=== PATIENT | male | born 1965 | race Caucasian/White ===

== ENCOUNTER 2020-12-22 08:01 | Day surgery (SDC) | payer BC ==
[~2020-12-22 08:01] MED LIST: Acetaminophen 325 MG Tab PO SCH; Dexamethasone 4 MG/ML 5 ML MDV ONE; Dexmedetomidine 200 MCG/2 ML SDV ONE; EPINEPHrine 1 MG/ML SDV ONE; Lactated Ringers 1,000 ML IV SCH; Lidocaine 1%/Sod Bicarbonate in NS 8.4% 1 ML Syringe IDERM PRN; Lidocaine 2% with EPINEPHrine 1:200,000 20 ML SDV ONE; Midazolam 1 MG/ML 2 ML SDV ONE; Pregabalin 25 MG Cap PO SCH; Ropivacaine 0.5% 5 MG/ML 30 ML SDV ONE; Sodium Chloride 0.9% 10 ML Syringe FLUSH PRN; fentaNYL 100 MCG/2 ML SDV ONE; oxyCODONE ER 10 MG TAB.ER PO SCH
--- NOTE | 2020-12-22 08:17 | PCM.PREANE ---
Preanesthetic Assessment - Procedure Proposed Procedure: right total shoulder arthroplasty - Anesthesia/Transfusion/Family Hx Anesthesia History: Prior Anesthesia Without Reaction Family History of Anesthesia Reaction: No Transfusion History: No Prior Transfusion(s) - Review of Systems General: No Symptoms Pulmonary: No Symptoms Cardiovascular: No Symptoms Gastrointestinal: No Symptoms Neurological: No Symptoms Other: Reports: Depression, Anxiety - Physical Assessment NPO Status Date: 12/21/20 NPO Status Time: 22:30 Vital Signs: 127/73 61 93% 16 97.7 Height: 5 ft 11 in Weight: 100.4 kg ASA Class: 2 Mental Status: Alert & Oriented x3 Airway Class: Mallampati = 1 Dentition: Reports: Normal Dentition (retainer) Thyro-Mental Finger Breadths: 3 Mouth Opening Finger Breadths: 3 ROM/Head Extension: Full Lungs: Clear to Auscultation, Normal Respiratory Effort Cardiovascular: Regular Rate, Regular Rhythm - Lab Values: Laboratory Last Values MRSA (PCR) Negative 12/09/20 15:03 - Allergies Allergies/Adverse Reactions: Allergies Allergy/AdvReac Type Severity Reaction Status Date / Time adhesive Allergy Cannot Verified 12/21/20 12:10 Remember bee venom protein (honey bee) Allergy Cannot Verified 12/21/20 12:10 Remember pitavastatin [From Livalo] Allergy Cannot Verified 12/21/20 12:10 Remember pravastatin Allergy Cannot Verified 12/21/20 12:10 Remember - Blood Blood Available: No - Acknowledgements Anesthesia Type Planned: General Anesthesia, Regional Block, MAC Pt an Appropriate Candidate for the Planned Anesthesia: Yes Alternatives and Risks of Anesthesia Discussed w Pt/Guardian: Yes Pt/Guardian Understands and Agrees with Anesthesia Plan: Yes PreAnesthesia Questionnaire HEENT History: Reports: Impaired Vision, Other (See Below) Other HEENT History: wears glasses Cardiovascular History: Reports: High Cholesterol, Hypertension Respiratory History: Reports: None Gastrointestinal History: Reports: None Genitourinary History: Reports: Other (See Below) Other Genitourinary History: elevated PSA, decreased testosterone, frequency 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 Musculoskeletal History: Reports: Other (See Below) Other Musculoskeletal History: bilateral shoulder pain Neurological History: Reports: None Psychiatric History: Reports: Anxiety, Depression Endocrine/Metabolic History: Reports: None Hematologic History: Reports: None Immunologic History: Reports: None Oncologic (Cancer) History: Reports: None Dermatologic History: Reports: None - Infectious Disease History Infectious Disease History: Reports: None - Past Surgical History Head Surgeries/Procedures: Reports: None HEENT Surgical History: Reports: Tonsillectomy Cardiovascular Surgical History: Reports: None Respiratory Surgical History: Reports: None GI Surgical History: Reports: None Male Surgical History: Reports: Vasectomy Endocrine Surgical History: Reports: None Neurological Surgical History: Reports: None Musculoskeletal Surgical History: Reports: Other (See Below) Other Musculoskeletal Surgeries/Procedures:: right finger surgeries, left knee arthroscopy, shoulder bone shaving Oncologic Surgical History: Reports: None Dermatological Surgical History: Reports: None - SUBSTANCE USE Tobacco Use Status *Q: Current Every Day Tobacco User Tobacco Use Within Last Twelve Months: Snuff/Dip Second Hand Smoke Exposure: No Days Per Week of Alcohol Use: 1 Recreational Drug Use History: No - HOME MEDS Home Medications: Home Meds Acetaminophen [Tylenol Extra Strength] 1,000 mg PO Q6HR PRN 12/21/20 [History] Ascorbic Acid [Vitamin C] 1,000 mg PO DAILY 12/21/20 [History] Cholecalciferol (Vitamin D3) [Vitamin D3] 5,000 unit PO DAILY 12/21/20 [History] Cider Vinegar [Apple Cider Vinegar] 1,000 mg PO DAILY 12/21/20 [History] Citalopram Hydrobromide [Celexa] 40 mg PO DAILY 12/21/20 [History] EPINEPHrine [Epipen] 1 dose IM ASDIRECTED PRN 12/21/20 [History] Magnesium 200 mg PO DAILY 12/21/20 [History] Multivitamin 1 tab PO DAILY 12/21/20 [History] Ubidecarenone [Coq-10] 100 mg PO DAILY 12/21/20 [History] Vitamin B Complex 1 cap PO DAILY 12/21/20 [History] Zinc 100 mg PO DAILY 12/21/20 [History] lisinopriL [Lisinopril] 30 mg PO DAILY 12/21/20 [History] Aspirin [Aspirin EC] 325 mg PO DAILY #40 tablet.dr 12/22/20 [Rx] Cyclobenzaprine [Flexeril] 10 mg PO BID PRN #20 tab 12/22/20 [Rx] oxyCODONE 5 - 10 mg PO Q4H PRN #40 tab 12/22/20 [Rx] - CURRENT (IN HOUSE) MEDS Current Meds: Current Medications Acetaminophen (Acetaminophen 325 Mg Tab) 975 mg PO ONETIME JUAN CARLOS Stop: 12/22/20 18:00 Lactated Ringer's (Ringers, Lactated) 1,000 mls @ 125 mls/hr IV ASDIRECTED JUAN CARLOS Stop: 12/22/20 23:00 Lidocaine/Sodium Bicarbonate (Lidocaine 1%/Sod Bicarbonate In Ns 8.4% 1 Ml Syringe) 0.25 ml IDERM ONETIME PRN PRN Reason: Prior to IV Start Stop: 12/22/20 18:00 Oxycodone HCl (Oxycodone Er 10 Mg Tab.Er) 10 mg PO ONETIME JUAN CARLOS Stop: 12/22/20 18:00 Pregabalin (Pregabalin 25 Mg Cap) 50 mg PO ONETIME JUAN CARLOS Stop: 12/22/20 16:00 Sodium Chloride (Sodium Chloride 0.9% 10 Ml Syringe) 10 ml FLUSH ASDIRECTED PRN PRN Reason: Keep Vein Open Stop: 12/22/20 18:00 Discontinued Medications Dexamethasone (Dexamethasone 4 Mg/Ml 5 Ml Mdv) Confirm Administered Dose 20 mg .ROUTE .STK-MED ONE Stop: 12/22/20 04:14 Dexmedetomidine HCl (Dexmedetomidine 200 Mcg/2 Ml Sdv) Confirm Administered Dose 200 mcg .ROUTE .STK-MED ONE Stop: 12/22/20 04:03 Epinephrine HCl (Epinephrine 1 Mg/Ml Sdv) Confirm Administered Dose 1 mg .ROUTE .STK-MED ONE Stop: 12/22/20 06:03 Fentanyl (Fentanyl 100 Mcg/2 Ml Sdv) Confirm Administered Dose 100 mcg .ROUTE .STK-MED ONE Stop: 12/22/20 04:06 Lidocaine/Epinephrine (Lidocaine 2% With Epinephrine 1:200,000 20 Ml Sdv) Confirm Administered Dose 20 ml .ROUTE .STK-MED ONE Stop: 12/22/20 04:07 Midazolam HCl (Midazolam 1 Mg/Ml 2 Ml Sdv) Confirm Administered Dose 4 mg .ROUTE .STK-MED ONE Stop: 12/22/20 04:06 Ropivacaine (Ropivacaine 0.5% 5 Mg/Ml 30 Ml Sdv) Confirm Administered Dose 30 ml .ROUTE .STK-MED ONE Stop: 12/22/20 04:04
[2020-12-22] MEDS ORDERED: Propofol 200 MG/20 ML SDV ONE ×3 (09:04→10:09)
[2020-12-22] MEDS ORDERED: Lidocaine 1% 4 ML ONE (09:05)
[2020-12-22] MEDS ORDERED: ceFAZolin 1 GM Vial ONE (09:21)
[2020-12-22] MEDS ORDERED: Lactated Ringers 1,000 ML ONE (09:29)
[2020-12-22] MEDS: Vancomycin 1 GM SDV ONE ×2 (09:52→10:23)
[2020-12-22] MEDS ORDERED: Ondansetron 4 MG/2 ML SDV ONE (09:56)
--- NOTE | 2020-12-22 10:00 | PCM.PRNOTE ---
- Free Text/Narrative Note: Postoperative regional pain control requested by surgeon. Pre-op Dx: Right shoulder osteoarthritis Surgical procedure: Right reverse total shoulder arthroplasty Procedure: Rt Interscalene block with U/S guidance Requesting physician: Dr. Kraig Callahan Risks and benefits discussed with the patient preoperatively including infection, bleeding, incomplete or failed block, possible nerve damage, local anesthetic toxicity. Chart reviewed, VS stable. Permit signed. Patient in preoperative room 6, stable , alert and awake. Time out performed at 08:36. Oxygen 3L via NC. Right side of the neck was prepped with Chloraprep x 1 and allowed to dry. Midazolam IV 4 mg given incrementally. Under aseptic technique, the brachial plexus was identified under ultrasound prior to needle insertion. Local infiltration with 2mls of 1% Lidocaine. 2" Stimuplex needle #22 G was inserted under US guidance. Neuromuscular response of biceps contraction and forearm twitching elicited at 0.6 mA. Under direct visualization of needle tip the injection of 2% PF Lidocaine with 1:200k epinephrine (8 cc) and then 0.5% Ropivacaine with 1:200k epinephrine (mixed with 8 mg Dexamethasone and 40 mcg of Dexmedetomidine), total of 17 mls in divided doses, maintaining negative aspiration was completed without problems. No local anesthetic toxicity was noted. Patient is awake, stable and tolerated the procedure well. Please see the attached U/S images Time: 08:36 - 08:46
--- NOTE | 2020-12-22 10:47 | CR ---
Right shoulder: 3 fluoroscopic spot views were obtained utilizing C-arm device of the right shoulder in the operating room. Comparison: Prior right shoulder MRI of 12/01/20. Right shoulder prosthesis is seen of the reverse type. Components are aligned. Fluoroscopy time is given as 3.2 seconds. Impression: 1. Procedural study as noted above. Diagnostic code #1
--- NOTE | 2020-12-22 11:33 | PCM48HPAN ---
Post Anesthesia Note - EVALUATION WITHIN 48HRS OF ANESTHETIC Vital Signs in Normal Range: Yes Patient Participated in Evaluation: Yes Respiratory Function Stable: Yes Airway Patent: Yes Cardiovascular Function Stable: Yes Hydration Status Stable: Yes Pain Control Satisfactory: Yes Nausea and Vomiting Control Satisfactory: Yes Mental Status Recovered: Yes Vital Signs: Last Vital Signs Temp 97.5 F 12/22/20 10:56 Pulse 85 12/22/20 10:56 Resp 18 12/22/20 10:56 BP 148/77 H 12/22/20 10:56 Pulse Ox 94 L 12/22/20 10:56
--- NOTE | 2021-01-01 20:26 | PCM.OPNOTE ---
- General Post-Op/Procedure Note Date of Surgery/Procedure: 12/22/20 Operative Procedure(s): right reverse total shoulder artyhroplasty Pre Op Diagnosis: right shoulder osteoarthritis with rotator cuff tear Post-Op Diagnosis: Same Anesthesia Technique: MAC, Regional Block Primary Surgeon: Kraig Mahmood Anesthesia Provider: Raghu Tijerina Patient Support Assistant: Courtney Castelan Patient Support Assistant: Latosha Fenton EBL in mLs: 75 Complications: None Condition: Good Free Text/Narrative:: 15 stem 36+2 glenosphere 28 baseplate 4mm poly
--- NOTE | 2021-01-01 21:03 | OR ---
DATE OF OPERATION: 12/22/2020 SURGEON: Kraig Mahmood MD OPERATION PERFORMED: Right reverse total shoulder arthroplasty. PREOPERATIVE DIAGNOSIS: Right shoulder osteoarthritis with rotator cuff tear. POSTOPERATIVE DIAGNOSIS: Right shoulder osteoarthritis with rotator cuff tear. ANESTHESIA: MAC with regional block. ANESTHESIA PROVIDER: Lexi Celestin. ASSISTANTS: 1. Courtney Castelan PA-C. 2. Latosha Fenton LPN. ESTIMATED BLOOD LOSS: 75 mL. COMPLICATIONS: None. CONDITION: Stable. IMPLANT: 1. [place] size 15, 135 degree reverse humeral stem. 2. [place] size 36 +2 glenosphere. 3. Isaiah size 28 mm concentric base plate. 4. [place] size 4 mm polyethylene liner. DESCRIPTION OF PROCEDURE: The patient was identified in the preoperative holding area. Proper site was marked and identified by the surgeon. The patient was taken back to the operative theater, where after adequate anesthesia, the patient was placed supine on a radiolucent table. The patient's right upper extremity was then sterilely prepped and draped in the usual sterile fashion. OR time-out was performed. The patient received 2 g IV Ancef. The patient was placed in a reverse Trendelenburg position and a deltopectoral incision was made. Cephalic vein was retracted laterally with the deltoid. The pectoralis tendon was retracted medially. The clavipectoral fascia was incised, and the conjoined tendon was retracted medially. Anterior humeral circumflex vessels were ligated. Biceps tendon was identified. The bicipital groove was opened. A pectoralis tenodesis of the biceps tendon was done. Biceps proximal to this level was then resected back to the level of the glenoid. Peel down of the subscapularis tendon was done at this time, and humeral head was dislocated. The patient was noted to have significant tearing of the infra and supraspinatus. Humeral head cut was then completed and found to be adequate. All osteophytes were removed. Attention was turned to the glenoid. Circumferential removal of the remaining labrum as well as any osteophytes was done at this time as well as partial capsulectomy. Guide pin was then placed in a center-center position with just a few degrees of inferior tilt. A 28 mm concentric reamer was then utilized down to a good bleeding bed. Guide pin was then removed. The center compression screw for the 28 mm base plate was then placed with base plate held in proper position, and it was found to have adequate compression. An inferior and superior locking screw were then placed in a divergent fashion. A 36 + 2 glenosphere was then impacted into place as the patient was noted to have significantly tight shoulder. Attention was turned to the humerus. The starter awl was placed down the canal. Starting with a 13 canal broach, I was able to broach up to a 15, which was found to have good purchase. The broaches were then utilized up to a size 15, which was found to be rotationally and vertically stable. Calcar planer was then utilized. Trial implants with +4 liner were placed. At this time, the patient had good adequate reduction of the shoulder. No over tightening of the conjoined tendon or deltoid was noted. C-arm fluoroscopy showed all implants to be in anatomic position with no signs of instability. At this time, the shoulder was dislocated. Trial implants were removed. The size 15 stem with +4 liner was constructed on the back table, and it was impacted into the humerus. The humerus was then again relocated and C-arm fluoroscopy showed no signs of fracture, and anatomic reduction of the shoulder. At this time, 1 L pulse lavage irrigation with Ancef was irrigated through the shoulder along with 400 mL Irrisept irrigation. Topical tranexamic acid and vancomycin powder were applied. A 2-0 Vicryl was used subcutaneously. Prineo was used for closure of the skin. The patient tolerated the procedures well and was sent to PACU in stable condition. MMODAL /[id number]
== END 2020-12-22 13:32 | disposition home or self-care (01) ==
LOC: JD.SDS 08:01
PROVIDERS: ATTEND Orthopaedic Surgery
DX: M19.011 Primary osteoarthritis, right shoulder (principal); M25.711 Osteophyte, right shoulder; M75.101 Unspecified rotator cuff tear or rupture of right shoulder, not specified as traumatic; E78.5 Hyperlipidemia, unspecified; E78.00 Pure hypercholesterolemia, unspecified; I10 Essential (primary) hypertension; F41.9 Anxiety disorder, unspecified; F32.9 Major depressive disorder, single episode, unspecified; Z88.8 Allergy status to other drugs, medicaments and biological substances; Z91.030 Bee allergy status; Z91.09 Other allergy status, other than to drugs and biological substances; Z79.899 Other long term (current) drug therapy; Z98.890 Other specified postprocedural states
CPT/HCPCS: 23472; 76000; 87641; 97161; 97165; A9270; C1713; C1769; C1776; J0171; J0690; J1100; J2250; J2405; J2704; J2795; J3010; J3370; J7120; 01638; 64415; 76942

== ENCOUNTER 2021-06-15 07:01 | Day surgery (SDC) | payer BC ==
[~2021-06-15 07:01] MED LIST changes: -Dexamethasone 4 MG/ML 5 ML MDV ONE; -Dexmedetomidine 200 MCG/2 ML SDV ONE; -EPINEPHrine 1 MG/ML SDV ONE; -Lactated Ringers 1,000 ML IV SCH; -Lidocaine 2% with EPINEPHrine 1:200,000 20 ML SDV ONE; -Midazolam 1 MG/ML 2 ML SDV ONE; -Ropivacaine 0.5% 5 MG/ML 30 ML SDV ONE; -fentaNYL 100 MCG/2 ML SDV ONE
[2021-06-15] MEDS ORDERED: EPINEPHrine 1 MG/ML SDV ONE (07:07)
[2021-06-15] MEDS ORDERED: Ropivacaine 0.5% 5 MG/ML 30 ML SDV ONE (07:07)
[2021-06-15] MEDS ORDERED: Propofol 200 MG/20 ML SDV ONE (07:13)
[2021-06-15] MEDS ORDERED: Lidocaine 1% 4 ML ONE (07:13)
[2021-06-15] MEDS ORDERED: Midazolam 1 MG/ML 2 ML SDV ONE (07:13)
[2021-06-15] MEDS ORDERED: fentaNYL 100 MCG/2 ML SDV ONE ×2 (07:14→08:32)
[2021-06-15] MEDS ORDERED: Rocuronium 50 MG/5 ML Vial ONE (07:14)
[2021-06-15] MEDS: Lactated Ringers 1,000 ML IV SCH ×2 (07:15→11:37)
[2021-06-15] MEDS ORDERED: Lidocaine 1% 2 ML ONE (07:25)
--- NOTE | 2021-06-15 07:30 | PCM.PREANE ---
Preanesthetic Assessment - Procedure Proposed Procedure: let reverse total shoulder arthroplasty - Anesthesia/Transfusion/Family Hx Anesthesia History: Prior Anesthesia Without Reaction Family History of Anesthesia Reaction: No Transfusion History: No Prior Transfusion(s) - Review of Systems General: No Symptoms Pulmonary: Cough (from lisinopril) Cardiovascular: No Symptoms Gastrointestinal: No Symptoms Neurological: No Symptoms Other: Reports: None - Physical Assessment NPO Status Date: 06/14/21 NPO Status Time: 23:30 Vital Signs: 118/84 72 95% 16 98.0 Height: 6 ft Weight: 101.605 kg ASA Class: 2 Mental Status: Alert & Oriented x3 Airway Class: Mallampati = 1 Dentition: Reports: Normal Dentition Thyro-Mental Finger Breadths: 3 Mouth Opening Finger Breadths: 3 ROM/Head Extension: Full Lungs: Clear to Auscultation, Normal Respiratory Effort Cardiovascular: Regular Rate, Regular Rhythm - Allergies Allergies/Adverse Reactions: Allergies Allergy/AdvReac Type Severity Reaction Status Date / Time adhesive Allergy Cannot Verified 06/14/21 16:14 Remember bee venom protein (honey bee) Allergy Cannot Verified 06/14/21 16:14 Remember latex Allergy Rash Verified 06/14/21 16:14 pitavastatin [From Livalo] Allergy Cannot Verified 06/14/21 16:14 Remember pravastatin Allergy Cannot Verified 06/14/21 16:14 Remember - Blood Blood Available: No - Acknowledgements Anesthesia Type Planned: General Anesthesia, Regional Block Pt an Appropriate Candidate for the Planned Anesthesia: Yes Alternatives and Risks of Anesthesia Discussed w Pt/Guardian: Yes Pt/Guardian Understands and Agrees with Anesthesia Plan: Yes PreAnesthesia Questionnaire HEENT History: Reports: Impaired Vision, Other (See Below) Other HEENT History: wears glasses Cardiovascular History: Reports: High Cholesterol, Hypertension Respiratory History: Reports: None Gastrointestinal History: Reports: None Genitourinary History: Reports: Other (See Below) Other Genitourinary History: elevated PSA, decreased testosterone, frequency 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 Musculoskeletal History: Reports: Other (See Below) Other Musculoskeletal History: bilateral shoulder pain Neurological History: Reports: None Psychiatric History: Reports: Anxiety, Depression Endocrine/Metabolic History: Reports: None Hematologic History: Reports: None Immunologic History: Reports: None Oncologic (Cancer) History: Reports: None Dermatologic History: Reports: None - Infectious Disease History Infectious Disease History: Reports: None - Past Surgical History Head Surgeries/Procedures: Reports: None HEENT Surgical History: Reports: Tonsillectomy Cardiovascular Surgical History: Reports: None Respiratory Surgical History: Reports: None GI Surgical History: Reports: None Male Surgical History: Reports: Vasectomy Endocrine Surgical History: Reports: None Neurological Surgical History: Reports: None Musculoskeletal Surgical History: Reports: Other (See Below) Other Musculoskeletal Surgeries/Procedures:: right finger surgeries, left knee arthroscopy, shoulder bone shaving Oncologic Surgical History: Reports: None Dermatological Surgical History: Reports: None - SUBSTANCE USE Tobacco Use Status *Q: Current Every Day Tobacco User Tobacco Use Within Last Twelve Months: Snuff/Dip Second Hand Smoke Exposure: No Days Per Week of Alcohol Use: 1 Recreational Drug Use History: No - HOME MEDS Home Medications: Home Meds Cholecalciferol (Vitamin D3) [Vitamin D3] 5,000 unit PO DAILY 12/21/20 [History] Cider Vinegar [Apple Cider Vinegar] 1,000 mg PO DAILY 12/21/20 [History] Citalopram Hydrobromide [Celexa] 40 mg PO DAILY 12/21/20 [History] EPINEPHrine [Epipen] 1 dose IM ASDIRECTED PRN 12/21/20 [History] Magnesium 200 mg PO DAILY 12/21/20 [History] Multivitamin 1 tab PO DAILY 12/21/20 [History] Ubidecarenone [Coq-10] 100 mg PO DAILY 12/21/20 [History] Vitamin B Complex 1 cap PO DAILY 12/21/20 [History] Zinc 100 mg PO DAILY 12/21/20 [History] lisinopriL [Lisinopril] 30 mg PO DAILY 12/21/20 [History] Amoxicillin 2,000 mg PO DAILY 06/14/21 [History] Aspirin [Aspirin EC] 325 mg PO DAILY #40 tablet.dr 06/15/21 [Rx] Cyclobenzaprine [Flexeril] 10 mg PO BID PRN #20 tab 06/15/21 [Rx] oxyCODONE 5 - 10 mg PO Q4H PRN #40 tab 06/15/21 [Rx] - CURRENT (IN HOUSE) MEDS Current Meds: Current Medications Acetaminophen (Acetaminophen 325 Mg Tab) 975 mg PO ONETIME JUAN CARLOS Stop: 06/15/21 16:00 Lactated Ringer's (Ringers, Lactated) 1,000 mls @ 125 mls/hr IV ASDIRECTED JUAN CARLOS Stop: 06/15/21 23:00 Lidocaine/Sodium Bicarbonate (Lidocaine 1%/Sod Bicarbonate In Ns 8.4% 1 Ml Syringe) 0.25 ml IDERM ONETIME PRN PRN Reason: Prior to IV Start Stop: 06/15/21 18:00 Oxycodone HCl (Oxycodone Er 10 Mg Tab.Er) 10 mg PO ONETIME JUAN CARLOS Stop: 06/15/21 16:00 Pregabalin (Pregabalin 25 Mg Cap) 50 mg PO ONETIME JUAN CARLOS Stop: 06/15/21 16:00 Sodium Chloride (Sodium Chloride 0.9% 10 Ml Syringe) 10 ml FLUSH ASDIRECTED PRN PRN Reason: Keep Vein Open Stop: 06/15/21 18:00 Discontinued Medications Epinephrine HCl (Epinephrine 1 Mg/Ml Sdv) Confirm Administered Dose 1 mg .ROUTE .STK-MED ONE Stop: 06/15/21 07:08 Fentanyl (Fentanyl 100 Mcg/2 Ml Sdv) Confirm Administered Dose 100 mcg .ROUTE .STK-MED ONE Stop: 06/15/21 07:15 Lidocaine HCl (Xylocaine-Mpf 1%) Confirm Administered Dose 4 mls @ as directed .ROUTE .STK-MED ONE Stop: 06/15/21 07:14 Midazolam HCl (Midazolam 1 Mg/Ml 2 Ml Sdv) Confirm Administered Dose 2 mg .ROUTE .STK-MED ONE Stop: 06/15/21 07:14 Propofol (Propofol 200 Mg/20 Ml Sdv) Confirm Administered Dose 200 mg .ROUTE .STK-MED ONE Stop: 06/15/21 07:14 Rocuronium [place] (Rocuronium 50 Mg/5 Ml Vial) Confirm Administered Dose 50 mg .ROUTE .STK-MED ONE Stop: 06/15/21 07:15 Ropivacaine (Ropivacaine 0.5% 5 Mg/Ml 30 Ml Sdv) Confirm Administered Dose 30 ml .ROUTE .STK-MED ONE Stop: 06/15/21 07:08
[2021-06-15] MEDS ORDERED: ceFAZolin 1 GM Vial ONE (08:33)
[2021-06-15] MEDS ORDERED: ePHEDrine 50 MG/ML SDV ONE (09:04)
[2021-06-15] MEDS ORDERED: Lactated Ringers 1,000 ML ONE (09:14)
[2021-06-15] MEDS ORDERED: Ondansetron 4 MG/2 ML SDV IVPUSH PRN (09:25)
[2021-06-15] MEDS ORDERED: fentaNYL 100 MCG/2 ML SDV IVPUSH PRN (09:25)
[2021-06-15] MEDS ORDERED: HYDROmorphone 0.5 MG/0.5 ML Syringe IVPUSH PRN (09:25)
[2021-06-15] MEDS: Vancomycin 1 GM SDV ONE ×2 (09:51→10:00)
[2021-06-15] MEDS ORDERED: Ketorolac 30 MG/ML SDV ONE (09:52)
[2021-06-15] MEDS ORDERED: Ondansetron 4 MG/2 ML SDV ONE (09:52)
--- NOTE | 2021-06-15 10:34 | PCM.POSTAN ---
POST ANESTHESIA ASSESSMENT - MENTAL STATUS Mental Status: Alert, Oriented - VITAL SIGNS Vital Signs: Last Vital Signs Temp 36.7 C 06/15/21 07:10 Pulse 72 06/15/21 07:10 Resp 16 06/15/21 07:10 BP 118/84 06/15/21 07:10 Pulse Ox 95 06/15/21 07:10 - RESPIRATORY Respiratory Status: Respiratory Rate WNL, Airway Patent, O2 Saturation Stable - CARDIOVASCULAR CV Status: Pulse Rate WNL, Blood Pressure Stable - GASTROINTESTINAL GI Status: No Symptoms - PAIN Pain Score: 0 - POST OP HYDRATION Hydration Status: Adequate & Stable
--- NOTE | 2021-06-15 11:24 | PCM.SN.2 ---
- Free Text/Narrative Note: Date: 06/15/21 Time out: 748 Start time: 748 End time:[address] left interscalene block with ultrasound guidance and nerve stimulator for post op pain control per Dr. Mahmood and patient. Preop diagnosis left shoulder pain. Procedure is left shoulder replacement reverse Informed consent obtained. Monitors and O2 placed at 2 l per n/c. Versed 2 mg and Fentanyl 100 mcg given IV total. Patient awake and talking during procedure. Left neck and clavicle area prepped with chlorprep times 2. Sterile gloves, hat and mask worn. US probe with sterile sleeve placed midclavicular with ID of brachial plexus and subclavian artery. Brachial plexus followed cephalad to level of cricoid. Lidocaine 1% local anesthetic injected prior to block placement. 22 g 2 inch stimplex needle advanced with US guidance to brachial plexus. Positive forearm response at .4mA with nerve stimulator. Ceased with saline injection. Ropivacaine 0.5% with epi 1:200,000 injected in increments of 5 ml with negative aspiration before each injection to a total of 30 ml. Good spread of local anesthetic seen on US. Patient tolerated procedure well. Vitals stable with no complaints. Block placed in preop room Dusty Ordaz CRNA Time Documentation
--- NOTE | 2021-06-15 11:34 | PCM48HPAN ---
Post Anesthesia Note - EVALUATION WITHIN 48HRS OF ANESTHETIC Vital Signs in Normal Range: Yes Patient Participated in Evaluation: Yes Respiratory Function Stable: Yes Airway Patent: Yes Cardiovascular Function Stable: Yes Hydration Status Stable: Yes Pain Control Satisfactory: Yes Nausea and Vomiting Control Satisfactory: Yes Mental Status Recovered: Yes Vital Signs: Last Vital Signs Temp 36.6 C 06/15/21 11:15 Pulse 89 06/15/21 11:15 Resp 13 06/15/21 11:15 BP 101/69 06/15/21 11:15 Pulse Ox 92 L 06/15/21 11:15
--- NOTE | 2021-06-15 12:35 | CR ---
Left shoulder: 3 fluoroscopic spot views were obtained of the left shoulder. Comparison: Prior left shoulder study of 09/24/19. Left shoulder prosthesis is noted. Components are aligned. Slight inferior spurring is seen within the acromioclavicular joint. Fluoroscopy time given is 6.9 seconds. Impression: 1. Procedural study as described above. Diagnostic code #2
--- NOTE | 2021-06-15 12:38 | CR ---
Left shoulder: Single AP view of the left shoulder was obtained. Comparison: Prior operative study performed earlier on the same day (9:53 AM). Left shoulder prosthesis is noted. Components are aligned. Soft tissue air is seen. No acute osseous abnormality is otherwise seen. Impression: 1. Satisfactory radiographic appearance of recently placed left shoulder prosthesis. Diagnostic code #2
--- NOTE | 2021-06-26 12:28 | PCM.OPNOTE ---
- General Post-Op/Procedure Note Date of Surgery/Procedure: 06/15/21 Operative Procedure(s): left reverse total shoulder arthroplasty Pre Op Diagnosis: left shoulder rotator cuff tear arthropathy Post-Op Diagnosis: Same Anesthesia Technique: General ET Tube, Regional Block Primary Surgeon: Kraig Mahmood Anesthesia Provider: Meghan Kruse Therapy Tech: Courtney Castelan Therapy Tech: Citlalli Hernandez EBL in mLs: 150 Complications: None Condition: Good Free Text/Narrative:: 36+2 28 baseplate 15 stem 4mm poly
--- NOTE | 2021-06-27 07:35 | OR ---
DATE OF OPERATION: 06/15/2021 SURGEON: Kraig Mahmood MD OPERATION PERFORMED: Left reverse total shoulder arthroplasty. PREOPERATIVE DIAGNOSIS: Left shoulder rotator cuff tear arthropathy. POSTOPERATIVE DIAGNOSIS: Left shoulder rotator cuff tear arthropathy. ANESTHESIA: General endotracheal intubation with regional interscalene block. ANESTHESIA PROVIDER: Meghan Kruse CRNA ASSISTANTS: Courtney Castelan PA-C and Citlalli Hernandez RN. ESTIMATED BLOOD LOSS: 150 mL. COMPLICATIONS: None. CONDITION: Stable. IMPLANTS: 1. Riverview size 36 +2 glenosphere. 2. Riverview size 28 mm concentric base plate. 3. Isaiah size 15 mm reverse humeral stem. 4. Isaiah size 4 mm polyethylene. DESCRIPTION OF PROCEDURE: The patient was identified in the preoperative holding area. Proper site was marked and identified by the surgeon. The patient was taken back to the operative suite where after adequate anesthesia the patient was placed supine on radiolucent table. Left shoulder was then sterilely prepped and draped in the usual sterile fashion. OR time-out was performed. The patient received 2 g IV Ancef. The patient was placed in reverse Trendelenburg position. Standard deltopectoral incision was made. This was taken down to cephalic vein. Cephalic vein and deltopectoral interval were identified. Cephalic vein was retracted laterally. Clavipectoral fascia was incised. Conjoined tendon was retracted medially. Anterior humeral circumflex vessels were ligated. Biceps tendon was identified and subpectoral tenodesis site was performed with a #2 FiberWire. The biceps was then resected back to the level of the glenoid. Peel down of the subscapularis tendon was done at this time, and the humeral head was dislocated. Neck cut was completed and found to be adequate. Attention was turned to the glenoid. Anterior and posterior retractors placed on the glenoid. Circumferential removal of the labrum as well as a partial capsulectomy were performed. At this time, a guide pin was placed in a center-center position with a few degrees inferior tilt. At this time, concentric 20 mm reamer was utilized until a good smile sign was produced. The central screw hole was measured after the pin was removed and the concentric 20 mm baseplate was then compressed using the central compression screw and inferior locking screw were then placed in divergent fashion and a 36 +2 glenosphere was impacted in place. Attention was turned to the humerus. Starter awl was placed down the canal and starting with a 13 broach, I was able to broach up to a size 15, was found to be rotationally and vertically stable. Calcar planer was then utilized. Trial implants with a +2 base with a 4 mm trial poly was then placed. The patient had full range of motion. No over tightening of the deltoid or the conjoined tendon and no signs of liftoff or loosening or dislocation. C-arm fluoroscopy showed implants to be well positioned. Shoulder was then dislocated and the 15 mm stem along with the +4 poly was constructed on the back table and then en bloc and impacted into the humerus. The shoulder was then relocated again. C-arm fluoroscopy showed all components to be well aligned with no signs of fracture. 1 L pulse lavage irrigation with Ancef was irrigated through shoulder along the 4 mL of Irrisept irrigation. Topical tranexamic acid and vancomycin powder were applied. 2-0 Vicryl was used subcutaneously, and Prineo was used for skin closure. The patient tolerated the procedure well and was sent to PACU in stable condition. ROSINA /[id number]
== END 2021-06-15 13:08 | disposition home or self-care (01) ==
LOC: JD.SDS 07:01
PROVIDERS: ATTEND Orthopaedic Surgery
DX: M75.102 Unspecified rotator cuff tear or rupture of left shoulder, not specified as traumatic (principal); M19.012 Primary osteoarthritis, left shoulder; F17.210 Nicotine dependence, cigarettes, uncomplicated; I10 Essential (primary) hypertension; F41.9 Anxiety disorder, unspecified; F32.9 Major depressive disorder, single episode, unspecified; E78.00 Pure hypercholesterolemia, unspecified; Z91.040 Latex allergy status; Z88.8 Allergy status to other drugs, medicaments and biological substances; Z91.030 Bee allergy status; Z79.899 Other long term (current) drug therapy; Z98.890 Other specified postprocedural states
CPT/HCPCS: 23472; 73020; 76000; A9270; C1713; C1769; C1776; J0171; J0690; J1885; J2250; J2405; J2704; J2795; J3010; J3370; J7120; 01638; 64415; 76942

== ENCOUNTER 2022-06-21 17:05 | Observation (INO) | payer BC ==
[2022-06-21] MEDS ORDERED: Sodium Chloride 0.9% 10 ML Syringe FLUSH PRN (17:38)
[2022-06-21] MEDS ORDERED: ceFAZolin 1 GM in Sodium Chloride 0.9% 50 ML IV ONE (18:54)
[2022-06-21] MEDS ORDERED: ceFAZolin 2 GM in Sodium Chloride 0.9% 50 ML IV ONE (18:55)
[2022-06-21] MEDS ORDERED: HYDROmorphone 0.5 MG/0.5 ML Syringe IVPUSH PRN ×3 (19:11→20:31)
[2022-06-21] MEDS ORDERED: Ondansetron 4 MG/2 ML SDV IV PRN (19:11)
[2022-06-21] MEDS ORDERED: Propofol 200 MG/20 ML SDV ONE (19:12)
[2022-06-21] MEDS ORDERED: fentaNYL 250 MCG/5 ML SDV ONE (19:13)
[2022-06-21] MEDS ORDERED: Midazolam 1 MG/ML 2 ML SDV ONE (19:13)
[2022-06-21] MEDS ORDERED: Bupivacaine 0.5% 30 ML SDV ONE (19:15)
[2022-06-21] MEDS ORDERED: Lidocaine 1% with EPINEPHrine 1:100,000 20 ML MDV ONE (19:15)
[2022-06-21] MEDS ORDERED: Lidocaine 1% 4 ML ONE (19:15)
[2022-06-21] MEDS ORDERED: ceFAZolin 2 GM Vial ONE (19:56)
[2022-06-21] MEDS ORDERED: Phenylephrine HCl In 0.9% NaCl 1 MG/10 ML Vial ONE (19:59)
[2022-06-21] MEDS ORDERED: Rocuronium 50 MG/5 ML Vial ONE (20:00)
[2022-06-21] MEDS ORDERED: Ondansetron 4 MG/2 ML SDV ONE (20:00)
[2022-06-21] MEDS ORDERED: Dexamethasone 4 MG/ML 5 ML MDV ONE (20:00)
[2022-06-21] MEDS ORDERED: ePHEDrine 50 MG/ML SDV ONE (20:09)
[2022-06-21] MEDS ORDERED: Lactated Ringers 1,000 ML ONE ×2 (20:18→20:56)
[2022-06-21] MEDS ORDERED: HYDROmorphone 0.5 MG/0.5 ML Syringe ONE (20:25)
[2022-06-21] MEDS ORDERED: Neostigmine Methylsulfate 10 MG/10 ML MDV ONE (20:25)
[2022-06-21] MEDS ORDERED: Ketorolac 30 MG/ML SDV ONE (20:26)
[2022-06-21] MEDS ORDERED: fentaNYL 100 MCG/2 ML SDV IVPUSH PRN (20:31)
[2022-06-21] MEDS ORDERED: Ondansetron 4 MG/2 ML SDV IVPUSH PRN (20:31)
[2022-06-21] MEDS ORDERED: Heparin Sodium 5,000 Units/ML Vial SUBCUT SCH (21:00)
[2022-06-21] MEDS ORDERED: Acetaminophen 325 MG Tab PO PRN (21:19)
[2022-06-21] MEDS ORDERED: diphenhydrAMINE 50 MG/ML SDV IVPUSH PRN (21:23)
[2022-06-21] MEDS: oxyCODONE 5 MG Tab PO PRN (21:51)
[2022-06-21] MEDS: Heparin Sodium 5,000 Units/ML Vial SUBCUT SCH (23:01)
[2022-06-22] MEDS ORDERED: Ketorolac 15 MG/ML SDV IVPUSH SCH ×2 (06:00→09:00)
[2022-06-22] MEDS: oxyCODONE 5 MG Tab PO PRN ×2 (07:38→14:26)
[2022-06-22] MEDS: Methocarbamol 500 MG Tab PO SCH ×2 (09:13→13:28)
[2022-06-22] MEDS: Heparin Sodium 5,000 Units/ML Vial SUBCUT SCH (09:13)
== END 2022-06-22 14:31 | disposition home or self-care (01) ==
LOC: JD.ED 17:05 → JD.SDS 18:50 → JD.MS 19:11
PROVIDERS: ADMIT Surgery; ATTEND Surgery
DX: K43.6 Other and unspecified ventral hernia with obstruction, without gangrene (principal); I10 Essential (primary) hypertension; E78.00 Pure hypercholesterolemia, unspecified; F41.9 Anxiety disorder, unspecified; F32.A Depression, unspecified; Z79.899 Other long term (current) drug therapy; Z91.040 Latex allergy status; Z88.1 Allergy status to other antibiotic agents; Z91.030 Bee allergy status; Z98.890 Other specified postprocedural states; Z79.82 Long term (current) use of aspirin
CPT/HCPCS: 36415; 49561; 49568; 51798; 80053; 83605; 85025; 86140; 99284; A9270; C1781; J0690; J1100; J1170; J1644; J1885; J2250; J2405; J2704; J2710; J3010; J3490; J7120; 00790; 96372; 96374; G0378